=== PATIENT | female | born 1950 | race Caucasian/White ===

== ENCOUNTER 2018-08-11 07:23 | Outpatient (CLI) | payer MEDICARE, BC, SELFPAY ==
[2018-08-11 08:51] LABS: Calculated LDL 92 mg/dL; Cholesterol 165 mg/dL (50-200); HDL Cholesterol 54 mg/dL (40-60); Triglyceride 96 mg/dL (30-150)
== END 2018-08-11 07:43 ==
PROVIDERS: PCP Internal Medicine; Visit Provider Internal Medicine
DX: E78.00 Pure hypercholesterolemia, unspecified (principal)
CPT/HCPCS: 36415; 80061; 83721

== ENCOUNTER 2019-04-23 07:35 | Outpatient (CLI) | payer MEDICARE, BC, SELFPAY ==
[2019-04-23 07:59] LABS: Abs Immature Grans 0.01 k/cumm (0.0-0.09); Absolute Basophil Count 0.02 k/cumm (0.0-0.2); Absolute Eosinophil Count 0.16 k/cumm (0.0-0.7); Absolute Lymphocyte Count 1.98 k/cumm (1.2-3.4); Absolute Neutrophil Count 2.18 k/cumm (1.2-6.7); Basophils % 0.4; Eosinophils % 3.2; HGB 13.2 g/dL (12.0-15.5); Immature Grans % 0.2 %; Mean Corp. HGB Concentration 33.8 g/dL (32.0-36.0); Mean Corpuscular Hemoglobin 32.2 pg (27.0-33.0); Mean Corpuscular Volume 95.1 fL (80-95); Mean Platelet Volume 9.1 fL (8.0-11.0); Monocytes % 12.1; Neutrophils % 44.1; Platelet Count 326 x1000/uL (130-400); RBC Distribution Width 11.7 % (11.7-14.6); White Blood Cell Count 4.95 k/cumm (4.4-10.8)
[2019-04-23 08:50] LABS: ALT 27 U/L (14-59); AST 18 U/L (15-37); Albumin 3.8 g/dL (3.4-5.0); Alkaline Phosphatase 51 U/L (46-116); Anion Gap 5.8 mmol/L (3-11); BUN 13 mg/dL (7-18); Bilirubin, Total 0.5 mg/dL (0.2-1.0); C-Reactive Protein 0.27 mg/dL (0.0-0.3); CO2 31.2 mmol/L (21.0-32.0); CREATININE 0.84 mg/dL (0.55-1.02); Calcium 7.8 mg/dL (8.5-10.1); Chloride 105 mmol/L (98-107); Creatine Kinase 86 U/L (26-192); Glucose 100 mg/dL (74-106); Lipase 87 U/L (73-393); Potassium 4.4 mmol/L (3.5-5.1); Sodium 142 mmol/L (136-145); TSH (W/Ref FT4) 5.34 uIU/mL (0.36-3.74); Total Protein 6.8 g/dL (6.4-8.2)
[2019-04-23 09:16] LABS: FREE T4 0.75 ng/dL (0.76-1.46)
[2019-04-23 09:20] LABS: ESR 16 mm/hr (0-30)
== END 2019-04-23 07:55 ==
PROVIDERS: PCP Internal Medicine; Visit Provider Nurse Practitioner Adult Health
DX: R10.816 Epigastric abdominal tenderness (principal); R10.9 Unspecified abdominal pain; M79.10 Myalgia, unspecified site; R70.0 Elevated erythrocyte sedimentation rate; R79.82 Elevated C-reactive protein (CRP); E78.00 Pure hypercholesterolemia, unspecified
CPT/HCPCS: 36415; 80053; 82550; 83690; 85652; 84439; 84443; 85025; 86140

== ENCOUNTER 2019-04-25 08:41 | Outpatient (CLI) | payer MEDICARE, BC, SELFPAY ==
--- NOTE | 2019-04-25 07:00 | DI.US_ITS ---
EXAM: US ABDOMEN CLINICAL HISTORY: epigastric abd tenderness,abd pain, fatty liver TECHNIQUE: Ultrasound performed using standard protocol. COMPARISON: No exams were available for comparison FINDINGS: The aorta is normal in diameter. The liver shows increased echogenicity, consistent with fatty infil tration. No focal liver lesions or biliary dilatation is seen. The gallbladder has a normal appeara nce, without evidence of stones or wall thickening. The spleen was partially obscured by bowel gas. It is normal in size. There is no evidence of hydronephrosis. The pancreas is grossly normal. IMPRESSION: Mild fatty infiltration of the liver, otherwise negative. DATA REPOSITORY:
== END 2019-04-25 09:01 ==
PROVIDERS: PCP Internal Medicine; Visit Provider Nurse Practitioner Adult Health
DX: K76.0 Fatty (change of) liver, not elsewhere classified (principal); R10.816 Epigastric abdominal tenderness; R10.9 Unspecified abdominal pain
CPT/HCPCS: 76700

== ENCOUNTER 2019-07-20 03:09 | Outpatient (CLI) | payer MEDICARE, BC, SELFPAY ==
[2019-07-20 13:24] LABS: TSH (W/Ref FT4) 2.85 uIU/mL (0.36-3.74)
== END 2019-07-20 03:29 ==
PROVIDERS: PCP Internal Medicine; Visit Provider Internal Medicine
DX: E03.9 Hypothyroidism, unspecified (principal)
CPT/HCPCS: 36415; 84443

== ENCOUNTER 2019-07-25 18:01 | Outpatient (CLI) | payer MEDICARE, BC, SELFPAY ==
--- NOTE | 2019-07-25 13:50 | DI.RAD_ITS ---
EXAM: XR HIP LT COMPLETE AP PELVIS CLINICAL HISTORY: L hip pain. TECHNIQUE: 2D digital imaging was performed. COMPARISON: No exams were available for comparison FINDINGS: Left hip is well maintained. The articular surfaces are within normal limits. The bones are intact and normally mineralized. No acute fracture or dislocation is seen. The soft tissues are unremarkab le. The sacroiliac joints and symphysis pubis are intact. IMPRESSION: Unremarkable radiographs of the left hip. Unremarkable radiographs of the pelvis DATA REPOSITORY: RADIATION DOSE DELIVERED:
== END 2019-07-25 18:21 ==
PROVIDERS: PCP Internal Medicine; Referring Provider Internal Medicine; Visit Provider Student in an Organized Health Care Education/Training Program
DX: M25.552 Pain in left hip (principal); M70.62 Trochanteric bursitis, left hip
CPT/HCPCS: 20610; 99204; 73502; J1030

== ENCOUNTER 2020-01-15 22:07 | Emergency (ER) | payer MEDICARE, BC, SELFPAY ==
[2020-01-15] VITALS (12 sets, daily range): BP systolic 128–172; BP diastolic 67–88; PULSE 81–102; RESP 7–22; TEMP 37; O2SAT 93–99
--- NOTE | 2020-01-15 22:00 | RT.EKG_ITS ---
APPROVED REPORT Exam: Resting ECG Patient Location: E HR:85 bpm ECG Measurements Heart Rate 85 AXIS ND 186 P 43 QRSd 104 QRS 49 QT 375 T 50 QTc 447 Conclusion Sinus rhythm...normal P axis, V-rate 60- 99
--- NOTE | 2020-01-15 22:15 | DI.CT_ITS ---
EXAM: CT CHEST PE CTA CLINICAL HISTORY: palpitations, tachycardia. TECHNIQUE: Imaging Protocol: Axial CT angiography was performed with multi-slice acquisition and mu lti-planar and/or 3D reconstructions. CONTRAST MATERIAL: Intravenous: Omnipaque 350 Contrast volume:75 cc COMPARISON: No exams were available for comparison FINDINGS: Pulmonary Arteries: No evidence of filling defect to suggest pulmonary emboli. Lungs: There is no evidence of pulmonary infarction, infiltrate, or pleural effusions. Mediastinum: No hilar nor mediastinal adenopathy. Cardiac: Heart size upper normal. There is no pericardial effusion. Caliber of the thoracic aorta i s within normal limits. Osseous: No significant findings. IMPRESSION: No evidence of pulmonary embolism. No evidence of pulmonary infarction or pleural effusions.. No other significant intrathoracic findings. RADIATION DOSE DELIVERED: 321.54mGy.cm Total DLP DATA REPOSITORY: All CT scans at this facility are submitted to the National Radiology Data Registry (NRDR) Dose Index Registry (DIR) with the [employer] ([employer]). RADIATION OPTIMIZATION: All CT scans at this facility use at least one of these dose optimization te chniques: automated exposure control; mA and/or kV adjustment per patient size (includes targeted exa ms where dose is matched to clinical indication); or iterative reconstruction.
--- NOTE | 2020-01-15 22:19 | W.ED.GENAD ---
Discharge Plan Disposition Patient Disposition: HOME Condition: Stable Discharge Details Clinical Impression: Heart palpitations Primary Care Provider: Magui Peña ED Provider: Olvin Washburn Home Meds and New Rx's Prescriptions: Continued magnesium oxide 400 mg magnesium tablet 400 mg PO DAILY RF: 0 lactase 3,000 UNIT tablet 3,000 unit PO DAILY RF: 0 Denavir 1.5 GM cream 1.5 gm Topical PRN Qty: 1 RF: 0 cholecalciferol (vitamin D3) 5,000 UNIT capsule 5,000 unit PO DAILY RF: 0 propranolol 10 MG tablet 10 mg PO TID PRNQty: 30 RF: 0 diclofenac sodium [Voltaren] 100 GM gel 100 gm Topical RF: 0 Varicella-Zoster Ge/As01b/Pf [Shingrix Vial Kit] 50 MCG INJ 50 mcg IM ONCE Qty: 1 RF: 1 clobetasol 15 GM ointment 15 gm Topical HS Qty: 1 RF: 0 acetaminophen [Arthritis Pain Relief (acetam)] 650 mg tablet extended release 1,300 mg PO Q8H PRN (Reason: pain) RF: 0 atorvastatin 10 mg tablet 10 mg PO DAILY Qty: 90 RF: 2 paroxetine HCl 20 mg tablet 20 mg PO DAILY Qty: 90 RF: 2 omeprazole 20 mg capsule,delayed release(DR/EC) 20 mg PO DAILY Qty: 30 RF: 0 calcium carbonate-vitamin D3 [Caltrate with Vitamin D3] 1 EACH tablet 1 ea PO DAILY RF: 0 vitamin E 1,000 UNIT capsule 1,000 unit PO DAILY RF: 0 Discharge Instructions Instructions: Heart Palpitations (ED) Additional Instructions: your lab work, ekg and monitoring here did not show any concerning findings follow up with your primary care provider to discuss outpatient heart monitoring if you feel more ill, have worsening pain or symptoms return to the emergency department Medical Decision Making 69 yo female with hx of hypothyroidism, hld, gerd,anxiety, who comes in after she states around 9 pm tonight felt her heart start racing to about 130 beats per minute and lasted 45 seconds. Had 2 more episodes and called ems who evaluated her on scene and noted HR of 102 so she decided to come by private car. She currently has a heart rate of95 in sinus rhythm and does still feel her heart is racing, hd stable otherwise. Denies chest pain or pressure, dyspnea, fevers, cough. Has no murmurs and clear lung sounds, no jvd, no leg swelling. She does note she doesn't hydrate well and this could be the cause of this but will maintain on tele, evaluate for possible electrolyte abnormalities and cardiac ischemia though unlikely given lack of pain. Given the mild tachycardia to 102 will obtain cta to evaluate for possible pe labs unremarkable and imaging shows nonspecific peribronchial cuffing otherwise clear lung. She remains stable with sinus rhythm and rates in the 80's and feels better after ivf so could have been an element of dehydration. Given reassuring tele here and workup feel she is stable for d/c and advised to f/u with pcp lidya for possible outpatient holter and return precautions given Differential Diagnosis Differential Diagnosis: svt, afib, anxiety, dehydration Medical Records Medical records reviewed: Yes I reviewed the patient's medical records. Imaging Data Radiologic Study: Attestation: I personally reviewed and interpreted this imaging study as follows: Imaging: CT Scan Radiologist's impression: FINDINGS: Pulmonary arteries: There is no evidence for PE. Aorta: Unremarkable. No aortic aneurysm. No aortic dissection. Lungs: Minimal dependent atelectasis noted Peribronchial cuffing is present which is nonspecific, and which may reflect acute or chronic bronchial inflammation. Alternatively, this may reflect an element of reactive airways disease. Pleural space: Unremarkable. No pneumothorax. No pleural effusion. Heart: Unremarkable. No cardiomegaly. No pericardial effusion. Lymph nodes: Unremarkable. No enlarged lymph nodes. Bones/joints: Unremarkable. No acute fracture. Soft tissues: Unremarkable. IMPRESSION: Nonspecific peribronchial cuffing Lab Data Lab results reviewed: Yes I reviewed the patient's lab results. ECG Data Attestation: I personally reviewed and interpreted this ECG (s) as follows: Prior ECG tracings: not available for review Interpretation: sinus rhythm, rate of 85, pr 186 qtc 447 HPI General Mode of arrival: ambulatory. Date/Time Provider Initiated Documentation: 01/15/20 22:08. Limitations to Documentation: no limitations. Information obtained by: patient. History of Present Illness 69 year old F presents to the emergency department with the chief complaint of palpitations, described as moderate, Patient started experiencing this hour(s) (1) and it has been intermittent. No relieving factors improve symptom(s), No exacerbating factors reported . Patient notes no other symptoms.. Patient did receive the following treatments prior to arrival, none Related Data Home Medications Medication Instructions Recorded Confirmed calcium carbonate-vitamin D3 1 ea PO DAILY 04/22/12 07/25/19 [Caltrate with Vitamin D3] lactase 3,000 unit PO DAILY 08/29/12 07/25/19 vitamin E 1,000 unit PO DAILY 10/01/13 07/25/19 Denavir 1.5 gm TOPICAL PRN #1 script 08/05/14 07/25/19 cholecalciferol (vitamin D3) 5,000 unit PO DAILY cap 08/11/16 07/25/19 propranolol 10 mg PO TID PRN #30 tab-cap 08/11/16 07/25/19 diclofenac sodium [Voltaren] 100 gm TOPICAL script 06/29/17 07/25/19 clobetasol 15 gm TOPICAL HS #1 tube 07/05/17 07/25/19 acetaminophen 650 mg 1,300 mg PO Q8H PRN tab 09/14/18 07/25/19 tablet,extended release atorvastatin 10 mg tablet 10 mg PO DAILY #90 tab 12/12/18 07/25/19 magnesium oxide 400 mg PO DAILY 04/20/19 07/25/19 paroxetine HCl 20 mg tablet 20 mg PO DAILY #90 tab 07/03/19 07/25/19 omeprazole 20 mg capsule,delayed 20 mg PO DAILY #30 cap 07/27/19 release Previous Rx's Medication Instructions Recorded clobetasol 15 gm TOPICAL HS #1 tube 07/05/17 atorvastatin 10 mg tablet 10 mg PO DAILY #90 tab 12/12/18 paroxetine HCl 20 mg tablet 20 mg PO DAILY #90 tab 07/03/19 omeprazole 20 mg capsule,delayed 20 mg PO DAILY #30 cap 07/27/19 release Allergies Allergy/AdvReac Type Severity Reaction Status Date / Time triamcinolone [From [employer]] Allergy Verified 01/15/20 22:26 General Stated Complaint: Palpitatns ELSA: 3 Review of Systems All systems reviewed & are unremarkable except as noted in HPI and below Constitutional Constitutional: Denies chills, Denies fever(s) and Denies weakness Cardiovascular Cardiovascular: Denies chest pain and Denies dyspnea Respiratory Respiratory: Denies cough and Denies dyspnea Gastrointestinal Gastrointestinal: Denies abdominal pain, Denies nausea and Denies vomiting Genitourinary Genitourinary: Denies dysuria Musculoskeletal Musculoskeletal: Denies joint swelling Integumentary/Breasts Skin/Breast: Denies rash Neurologic Neurologic: Denies weakness Psychiatric Psychiatric: Denies depression REPLACED BY [facility] Medical History (Updated 01/15/20 @ 23:22 by Olvin Washburn MD) GERD (gastroesophageal reflux disease) HLD (hyperlipidemia) Hypothyroid Labs; clinically asymptomatic; repeat labs 3 months, as pt not feeling great at time of lab draw Surgical History esophagogoastroduodenoscopy (10/01/13) S/P trigger finger release (07/18/18) right hand, 2,3 and 4th fingers Family History Father Alcohol abuse Sister Alcohol abuse Social History Smoking/Tobacco Use Status: Never Smoking risk assessment performed?: Yes Alcohol Intake: current Alcohol Intake frequency: 0-2 drinks per day Alcohol type: beer Drug use: Never Substance use type: does not use Adopted: No Household members: spouse Housing: house Number of Children: 3 number of grandchildren: 2 Education Level: master's degree Do you need help understanding health information?: Never 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 Sexually active: No Current gender identity: female What is your relationship status?: Panel score (0-1 are the most socially isolated patients): 1 What type of physical activity do you participate in: walking and bicycling Frequency: 3-4 times per week Seatbelt use: always Working smoke detector in home: Yes Fire extinguisher in home: Yes Carbon monox detector in home: Yes Do you feel safe at home: Yes Do you feel safe in your relationship?: Yes Exam Const General: no acute distress Orientation: alert HENMT Head: normal to inspection Ears: external ears normal General nose exam: external nose normal Mouth: moist mucous membranes Eyes General: appearance normal, both eyes and all related structures Neck Neck: normal visual inspection Resp Effort & Inspection: normal respiratory effort and able to speak in complete sentences Cardio Rate: regular rate Skin General skin exam: no rashes or lesions noted Neuro General: patient alert and patient oriented x3 Extrem General: normal to inspection Psych Mental Status: mental status grossly normal Course Vital Signs Vital signs: Vital Signs Temperature 37.0 C 01/15/20 22:11 Pulse 96 H 01/15/20 22:11 Respiratory Rate 19 01/15/20 22:11 Blood Pressure 172/88 H 01/15/20 22:11 Pulse Oximetry 96 01/15/20 22:11 Temperature 37.0 C 01/15/20 22:11 Temperature Source Skin 01/15/20 22:11 Pulse 94 H 01/15/20 22:14 Pulse 92 H 01/15/20 22:15 Respiratory Rate 20 01/15/20 22:15 Blood Pressure 172/88 H 01/15/20 22:14 Blood Pressure Mean 101 01/15/20 22:14 Blood Pressure Position Supine 01/15/20 22:11 Pulse Oximetry 99 01/15/20 22:15 Oxygen Delivery Method Room Air 01/15/20 22:11 Oxygen Flow Rate 0 01/15/20 22:11 Pain Level 0 01/15/20 22:11
[2020-01-15] MEDS: Normal Saline 1,000 ML 1000 ML IV (22:23)
[2020-01-15 22:30] LABS: Abs Immature Grans 0.02 10^3/uL (0.0-0.06); Absolute Basophil Count 0.03 10^3/uL (0.0-0.2); Absolute Eosinophil Count 0.13 10^3/uL (0.0-0.7); Absolute Lymphocyte Count 2.35 10^3/uL (1.2-3.4); Absolute Monocyte Count 0.89 10^3/uL (0.1-0.8); Absolute Neutrophil Count 4.18 10^3/uL (1.2-6.7); Basophils % 0.4; Eosinophils % 1.7; HCT 38.1 % (36.0-46.0); Immature Grans % 0.3; Lymphocytes % 30.9; MCH 32.2 pg (27.0-33.0); MCHC 34.1 % (32.0-36.0); MCV 94.3 fL (80-95); MPV 9.3 fL (8.0-11.0); Monocytes % 11.7; Nucleated RBC 0 %; Platelet Count 305 10^3/uL (130-400); RBC 4.04 10^6/uL (3.93-5.22); RDW 11.4 % (11.7-14.6); RDW-SD 39.6 fL
[2020-01-15] MEDS: Omnipaque 350 MG/ML 100 ML BTL IJ (22:34)
[2020-01-15] MEDS: Normal Saline - Diluent 50 ML VIAL IV (22:44)
[2020-01-15] MEDS: Normal Saline Flush 10 ML SYR IVP (22:44)
[2020-01-15 22:49] LABS: ALT 37 U/L (14-59); AST 20 U/L (15-37); Albumin 3.8 g/dL (3.4-5.0); Alkaline Phosphatase 60 U/L (46-116); Anion Gap 5.3 mmol/L (3-11); BUN 18 mg/dL (7-18); Bilirubin, Total 0.2 mg/dL (0.2-1.0); CO2 27.7 mmol/L (21.0-32.0); CREATININE 0.82 mg/dL (0.55-1.02); Calcium 8.5 mg/dL (8.5-10.1); Chloride 105 mmol/L (98-107); Glucose 127 mg/dL (74-106); Magnesium 1.9 mg/dL (1.8-2.4); Potassium 3.5 mmol/L (3.5-5.1); Sodium 138 mmol/L (136-145); TSH (W/Ref FT4) 6.89 uIU/mL (0.36-3.74); Total Protein 7.3 g/dL (6.4-8.2)
[2020-01-15 22:51] LABS: Troponin I < 0.05 ng/mL (<0.06)
--- NOTE | 2020-01-15 23:01 | DI.VRAD_ITS ---
PROCEDURE INFORMATION: Exam: CT Angiography Chest With Contrast Exam date and time: 01/15/2020 10:39 PM Age: 69 years old Clinical indication: Other: Palpitations, tachycardia TECHNIQUE: Imaging protocol: Computed tomographic angiography of the chest with intravenous contrast. 3D rendering (Not supervised by radiologist): MIP and/or 3D reconstructed images were created by the technologist. Radiation optimization: All CT scans at this facility use at least one of these dose optimization techniques: automated exposure control; mA and/or kV adjustment per patient size (includes targeted exams where dose is matched to clinical indication); or iterative reconstruction. Contrast material: OMNIPAQUE 350; Contrast volume: 75 ml; Contrast route: INTRAVENOUS (IV); COMPARISON: No relevant prior studies available. FINDINGS: Pulmonary arteries: There is no evidence for PE. Aorta: Unremarkable. No aortic aneurysm. No aortic dissection. Lungs: Minimal dependent atelectasis noted Peribronchial cuffing is present which is nonspecific, and which may reflect acute or chronic bronchial inflammation. Alternatively, this may reflect an element of reactive airways disease. Pleural space: Unremarkable. No pneumothorax. No pleural effusion. Heart: Unremarkable. No cardiomegaly. No pericardial effusion. Lymph nodes: Unremarkable. No enlarged lymph nodes. Bones/joints: Unremarkable. No acute fracture. Soft tissues: Unremarkable. IMPRESSION: Nonspecific peribronchial cuffing. Dictated and Authenticated by: Cesar Cintron MD. Ordering:JANNIE Bah MD
[2020-01-15 23:08] LABS: FREE T4 0.89 ng/dL (0.76-1.46)
[2020-01-15 23:38] LABS: PTT Activated 23.9 sec (21.0-27.5); Prothrombin Time 10.3 sec (9.3-11.0)
--- NOTE | 2020-01-15 23:53 | NUR.NOTE ---
mars for follow up with pcp was sent to [facility] Nursing Note:
== END 2020-01-15 23:37 | disposition home or self-care (01) ==
PROVIDERS: Emergency Provider Emergency Medicine; PCP Internal Medicine
DX: R00.2 Palpitations (principal)
CPT/HCPCS: 36415; 71275; 80053; 93005; 96360; 99285; 83735; 84439; 84443; 84484; 85025; 85610; 85730; 93010; 99284; J3490

== ENCOUNTER 2020-01-25 05:00 | Outpatient (CLI) | payer MEDICARE, BC, SELFPAY ==
[2020-01-25 14:07] LABS: Hemoglobin A1C 5.5 % (<5.7)
[2020-01-25 14:11] LABS: FREE T4 0.73 ng/dL (0.76-1.46); TSH 4.44 uIU/mL (0.36-3.74)
[2020-01-25 21:39] LABS: T3,Free 3.1 pg/mL (2.8-5.3)
[2020-01-25 22:02] LABS: Thyroglobulin Antibody 317 U/mL (<=60); Thyroperoxidase Antibody <28 U/mL (<=60)
== END 2020-01-25 05:20 ==
PROVIDERS: PCP Internal Medicine; Visit Provider Nurse Practitioner Adult Health
DX: E03.9 Hypothyroidism, unspecified (principal); R73.09 Other abnormal glucose; R00.2 Palpitations; R79.89 Other specified abnormal findings of blood chemistry; K76.0 Fatty (change of) liver, not elsewhere classified
CPT/HCPCS: 36415; 86376; 93246; 83036; 84439; 84443; 84481

== ENCOUNTER 2020-01-25 05:05 | Outpatient (CLI) | payer MEDICARE, BC, SELFPAY ==
--- NOTE | 2020-02-11 09:11 | ZIOP_ITS ---
Date of service: 02/11/20 Time of Service: 09:11 14 Day [employer] Referring Provider:: Selene Samuel Indications:: Palpitations Note: This is a 14-day monitor reportedly ordered for symptoms of palpitations Predominant rhythm was sinus. Average heart rate was 74. Minimum was 55 and maximum 121 There were no ventricular dysrhythmias There were rare atrial premature beats Patient symptoms corresponded to sinus rhythm ranging from 75 to 85 bpm There were no pauses greater than 3 seconds, no high-grade AV block
== END 2020-01-25 05:25 ==
PROVIDERS: PCP Internal Medicine; Visit Provider Nurse Practitioner Adult Health
DX: R00.2 Palpitations (principal)
CPT/HCPCS: 0296T; 93246

== ENCOUNTER → 2020-02-11 09:11 | Outpatient (CLI) | payer MEDICARE, BC, SELFPAY | PROVIDERS: PCP Internal Medicine; Referring Provider Nurse Practitioner Adult Health; Visit Provider Internal Medicine Cardiovascular Disease | DX: R00.2 Palpitations (principal) | CPT/HCPCS: 0298T ==

== ENCOUNTER → 2020-03-06 11:17 | Outpatient (BNVA) | payer MEDICARE, BC, SELFPAY | PROVIDERS: PCP Internal Medicine; Referring Provider Nurse Practitioner Adult Health; Visit Provider Internal Medicine Cardiovascular Disease | DX: R00.2 Palpitations (principal) | CPT/HCPCS: 99214 ==

== ENCOUNTER → 2020-05-09 07:53 | Outpatient (BNVA) | payer MEDICARE, BC, SELFPAY | PROVIDERS: PCP Internal Medicine; Referring Provider Internal Medicine; Visit Provider Physician Assistant | DX: M70.62 Trochanteric bursitis, left hip (principal) | CPT/HCPCS: 20610; J1040 ==

== ENCOUNTER 2020-07-31 01:47 | Outpatient (CLI) | payer MEDICARE, BC, SELFPAY ==
[2020-07-31 13:05] LABS: TSH 4.25 uIU/mL (0.36-3.74)
== END 2020-07-31 01:48 | disposition home or self-care (01) ==
PROVIDERS: PCP Internal Medicine; Visit Provider Student in an Organized Health Care Education/Training Program
DX: E03.8 Other specified hypothyroidism (principal); E06.3 Autoimmune thyroiditis
CPT/HCPCS: 36415; 84443

== ENCOUNTER → 2020-08-06 07:57 | Outpatient (BNVA) | payer MEDICARE, BC, SELFPAY | PROVIDERS: PCP Internal Medicine; Referring Provider Internal Medicine; Visit Provider Student in an Organized Health Care Education/Training Program | DX: M70.62 Trochanteric bursitis, left hip (principal); M76.32 Iliotibial band syndrome, left leg; M70.61 Trochanteric bursitis, right hip; Z98.890 Other specified postprocedural states | CPT/HCPCS: 99214 ==

== ENCOUNTER 2021-07-20 04:02 | Outpatient (CLI) | payer MEDICARE, SELFPAY ==
[2021-07-20 14:15] LABS: Anion Gap 6.9 mmol/L (3-11); BUN 20 mg/dL (7-18); CO2 29.1 mmol/L (21.0-32.0); CREATININE 0.7 mg/dL (0.55-1.02); Calcium 8.6 mg/dL (8.5-10.1); Calculated LDL 86 mg/dL (<100); Chloride 103 mmol/L (98-107); Cholesterol 178 mg/dL (<200); Glucose 101 mg/dL (74-106); HDL Cholesterol 72 mg/dL (40-60); Potassium 4.5 mmol/L (3.5-5.1); Sodium 139 mmol/L (136-145); TSH 1.98 uIU/mL (0.36-3.74); Triglyceride 101 mg/dL (<150)
== END 2021-07-20 04:03 | disposition home or self-care (01) ==
LOC: LBO 04:02
PROVIDERS: PCP Internal Medicine; Visit Provider Internal Medicine
DX: E06.3 Autoimmune thyroiditis (principal); E78.5 Hyperlipidemia, unspecified; R03.0 Elevated blood-pressure reading, without diagnosis of hypertension; E78.00 Pure hypercholesterolemia, unspecified
CPT/HCPCS: 36415; 80048; 80061; 84443

== ENCOUNTER 2021-12-28 16:30 | Outpatient (CLI) | payer MEDICARE, SELFPAY ==
[2021-12-28 17:51] LABS: TSH (W/Ref FT4) 2.95 uIU/mL (0.36-3.74)
== END 2021-12-28 16:31 | disposition home or self-care (01) ==
LOC: LBO 16:43
PROVIDERS: PCP Nurse Practitioner Adult Health; Visit Provider Nurse Practitioner Adult Health
DX: R00.2 Palpitations (principal)
CPT/HCPCS: 36415; 84443

== ENCOUNTER 2022-06-29 19:33 | Emergency (ER) | payer MEDICARE, SELFPAY ==
[2022-06-29] VITALS (51 sets, daily range): BP systolic 135–161; BP diastolic 53–87; PULSE 70–77; RESP 11–26; TEMP 36.6; O2SAT 91–97
--- NOTE | 2022-06-29 19:30 | RT.EKG_ITS ---
APPROVED REPORT Exam: Resting ECG Reason for Exam: slow heart rate Patient Location: E HR:74 bpm ECG Measurements Heart Rate 74 AXIS UT 161 P 47 QRSd 94 QRS 43 QT 388 T 61 QTc 422 Conclusion Sinus rhythm...normal P axis, V-rate 60- 99 Multiple ventricular premature complexes...V complexes w/ short R-R intervls Probable left atrial enlargement...P >50mS, <-0.10mV V1 Low voltage, precordial leads...precordial leads <1.0mV. Sinus. Normal axis. PVCs. No STEMI. I have reviewed and interpreted ECG and agree with software generated interpretation.
--- NOTE | 2022-06-29 20:15 | DI.RAD_ITS ---
Exam(s) XR PORTABLE CHEST AP EXAM: XR PORTABLE CHEST AP CLINICAL HISTORY: tired, r/o acute disease TECHNIQUE: 2D digital imaging was performed. COMPARISON: CR CHEST 2 VIEWS PA,LAT from 08/21/2010 FINDINGS: LUNGS: Clear. No pleural abnormality seen. HEART: Normal size. AORTA: Normal diameter. BONES: Unremarkable for age. Soft tissues: Unremarkable. IMPRESSION: No acute findings. DATA REPOSITORY: RADIATION DOSE DELIVERED:
--- NOTE | 2022-06-29 20:18 | W.ED.GENAD ---
Discharge Plan Disposition Patient Disposition: Home Condition: Stable Discharge Details Clinical Impression: Palpitations Primary Care Provider: Selene Pollack ED Provider: Mary Hobbs Home Meds and New Rx's Prescriptions: Continued magnesium oxide 400 mg magnesium tablet 400 mg PO DAILY ibuprofen [Advil] 200 mg tablet 400 mg PO Q6H PRN estradiol [Estrace] 0.01 % (0.1 mg/gram) cream 1 appful vaginal .COMPLEX Qty: 42.5 2RF Rx Instructions: 1 appful vaginally 1-2 times weekly penciclovir [Denavir] 1 % cream 1 applic Topical PRN Qty: 1 0RF Rx Instructions: Apply to affected area BID as needed for apthous ulcer clobetasol 0.05 % ointment 1 applic topical .COMPLEX 42 Days Qty: 15 2RF Rx Instructions: 1 applic TP at bedtime daily for 6 wees then weekly for 6 weeks lactase 3,000 UNIT tablet 3,000 unit PO DAILY cholecalciferol (vitamin D3) 5,000 UNIT capsule 5,000 unit PO DAILY diclofenac sodium [Voltaren] 100 GM gel 100 gm Topical Rx Instructions: 06/28/17-rx from [facility] [place] rheum. Varicella-Zoster Ge/As01b/Pf [Shingrix Vial Kit] 50 MCG INJ 50 mcg IM ONCE Qty: 1 1RF acetaminophen [Arthritis Pain Relief (acetam)] 650 mg tablet extended release 1,300 mg PO Q8H PRN (Reason: pain) Rx Instructions: up to 5 tabs per day note dated 09/06/18 Clau Price DPM atorvastatin 10 mg tablet 10 mg PO DAILY Qty: 90 3RF propranolol 10 mg tablet See Rx Instructions .ROUTE .COMPLEX Qty: 270 0RF Dose Instruction: TAKE 1 TABLET(10 MG) BY MOUTH THREE TIMES DAILY NEEDED FOR PALPITATIONS Rx Instructions: TAKE 1 TABLET(10 MG) BY MOUTH THREE TIMES DAILY NEEDED FOR PALPITATIONS levothyroxine 25 mcg tablet See Rx Instructions .ROUTE .COMPLEX Qty: 90 3RF Dose Instruction: TAKE 1 TABLET BY MOUTH EVERY MORNING ON AN EMPTY STOMACH, ABOUT 30 MINUTES APART FROM OTHER FOODS, MEDICATIONS Rx Instructions: TAKE 1 TABLET BY MOUTH EVERY MORNING ON AN EMPTY STOMACH, ABOUT 30 MINUTES APART FROM OTHER FOODS, MEDICATIONS paroxetine HCl 20 mg tablet 20 mg PO DAILY Qty: 90 3RF calcium carbonate-vitamin D3 [Caltrate with Vitamin D3] 1 EACH tablet 1 ea PO DAILY Rx Instructions: Ca 1000 mg, Vit D3 600mg vitamin E 1,000 UNIT capsule 1,000 unit PO DAILY Discharge Instructions Instructions: Heart Palpitations (ED) Additional Instructions: Your blood tests, EKGs and imaging today are reassuring and show no evidence of acute concerning findings. Your symptoms, EKGs and case were discussed with [facility] cardiology. They note that your EKG and symptoms are consistent with ventricular bigeminy which involves extra beats called premature ventricular contractions (PVCs). This is likely the cause of your symptoms of palpitations, fluttering and skipped beats. They are recommending that you have a Zio patch placed and obtain an echocardiogram as soon as possible. They are also recommending that you could restart your propranolol today or get started on another beta-earl daily. 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 You have been placed on care management's list to arrange for a follow-up appointment with your primary care doctor's office tomorrow to discuss your symptoms and plan for Zio patch, echocardiogram and starting a daily beta-earl. It would also be recommended to follow-up with cardiology outpatient. Drink plenty of fluids and get plenty of rest. Return immediately to the emergency department if you develop any worsening or new concerning symptoms. 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 Heart rate on arrival 77. Blood pressure reassuring at 135/79. EKG noted a rate of 74, sinus, PVCs with normal intervals and no acute ischemic findings. During my evaluation of patient in triage, her heart rate was 36 and patient appeared in no acute distress. While telling her that her heart rate was low again, she seemed anxious and her heart rate increased to 70s. Review of records notes that patient has had a Holter monitor placed in 2015 and 2019 both of which noted mostly sinus and mostly normal heart rate with no evidence of atrial or ventricular dysrhythmias. Patient brought back to her room. Will obtain screening labs, telemetry monitoring, chest x-ray. 2129 --Labs and imaging reviewed. Normal white blood cell count. Normal electrolytes. Troponin within normal limits. FLUVID negative. Chest x-ray negative for acute disease. Case discussed with [facility] cardiology who notes that patient's heart rate in the 70s is accurate and appears consistent with ventricular bigeminy. He notes that patient's smart watch and pulse oximeter's do not count PVCs. He is recommending an outpatient Zio patch to assess for PVC burden and outpatient echocardiogram. If PVC burden is greater than 10 to 15%, would recommend PVC ablation; If less than 10 to 15% you can treat her symptoms. Risks of high PVC burden include cardiomyopathy. He recommends that patient can restart her propranolol and suspect that her ongoing symptoms of palpitations are likely due to not taking the propranolol consistently in the setting of ongoing symptoms of palpitations and fluttering. She could also consider starting another type of daily beta-earl. Patient had endorsed that she has a Holter monitor or Zio patch scheduled for July 13. Patient was placed on care management's list to arrange for a follow-up appointment with her primary care doctor's office tomorrow to discuss the beta-earl, and placement of a Zio patch and obtaining an echocardiogram.. Discussed that she can restart her propranolol this evening or discuss this with her provider tomorrow. We will place an order for the outpatient echocardiogram but discussed that she may need to schedule this or have this ordered through her PCP for primary authorization. Usual and customary return precautions given prior to discharge. Medical Records Medical records reviewed: Yes I reviewed the patient's medical records. Imaging Data Radiologic Study: Radiologist's impression: XR Chest Exam date and time: 06/29/2022 8:41 PM Age: 72 years old Clinical indication: Other: Feels unwell TECHNIQUE: Imaging protocol: Radiologic exam of the chest. Views: 1 view. COMPARISON: CT CHEST PE CTA 01/15/2020 10:30 PM FINDINGS: Lungs: Unremarkable. No consolidation. Pleural spaces: Unremarkable. No pleural effusion. No pneumothorax. Heart/Mediastinum: Unremarkable. No cardiomegaly. Bones/joints: Unremarkable. IMPRESSION: No acute findings. Lab Data Lab results reviewed: Yes I reviewed the patient's lab results. Labs: Laboratory Tests Range/Units 06/29/22 06/29/22 06/29/22 20:27 20:27 20:27 WBC (4.4-10.8) 10^3/uL 6.86 RBC (3.93-5.22) 10^6/uL 4.02 Hgb (11.2-15.7) g/dL 13.2 Hct (36.0-46.0) % 38.6 MCV (80-95) fL 96 H MCH (27.0-33.0) pg 32.8 MCHC (32.0-36.0) % 34.2 RDW (11.7-14.6) % 12.0 Plt Count (130-400) 10^3/uL 276 MPV (8.0-11.0) fL 9.7 Immature Gran % 0.3 Neutrophils % 53.1 Lymphocytes % 33.5 Monocytes % 10.5 Eosinophils % 2.0 Basophils % 0.6 Nucleated RBC % (0.0-0.3) % 0.0 Absolute Neutrophils (1.2-6.7) 10^3/uL 3.64 Absolute Lymphocytes (1.2-3.4) 10^3/uL 2.30 Absolute Monocytes (0.1-0.8) 10^3/uL 0.72 Absolute Eosinophils (0.0-0.7) 10^3/uL 0.14 Absolute Basophils (0.0-0.2) 10^3/uL 0.04 Sodium (136-145) mmol/L 138 Potassium (3.5-5.1) mmol/L 3.8 Chloride (98-107) mmol/L 104 Carbon Dioxide (21.0-32.0) mmol/L 29.7 Anion Gap (3-11) mmol/L 4.3 BUN (7-18) mg/dL 14 Creatinine (0.55-1.02) mg/dL 0.7 Est GFR (CKD-EPI 2020) (mL/min/1.73m2) 90.70 Glucose (74-106) mg/dL 121 H Calcium (8.5-10.1) mg/dL 9.2 Magnesium (1.8-2.4) mg/dL 2.0 Total Bilirubin (0.2-1.0) mg/dL 0.6 AST (15-37) U/L 17 ALT (14-59) U/L 29 Alkaline Phosphatase (46-116) U/L 56 Troponin I (<or=60) ng/L < 50 Total Protein (6.4-8.2) g/dL 7.2 Albumin (3.4-5.0) g/dL 3.7 COVID-19 Source Nasopharynx SARS-CoV-2 (PCR) (Negative) Negative Influenza Type A (PCR) (Negative) Negative Influenza Type B (PCR) (Negative) Negative RSV (PCR) (Negative) Negative ECG Data Attestation: I personally reviewed and interpreted this ECG (s) as follows: Interpretation: #1 -- Rate of 74, sinus, PVCs, normal intervals, no STEMI. #2 -- Rate of 72, sinus, ventricular bigeminy, normal intervals, no STEMI. HPI General Date/Time Provider Initiated Documentation: 06/29/22 19:43. Limitations to Documentation: no limitations. Information obtained by: patient. HPI Narrative: Patient is a 72-year-old female with a history of hypertension, hyperlipidemia, GERD, chronic anxiety, depression, palpitations, history of Eduard's thyroiditis on levothyroxine presents for low heart rate and fatigue today. 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 Patient states this evening her watch alarmed stating that her heart rate was 38. Patient states she has noted throughout the day that she has seemed fatigued. She states she would not have thought anything of it if her heart rate was not low. Patient states she just traveled from [place] where she was cleaning out a condo and has been working hard and not getting much sleep. Patient states she flew back from [place] on Tuesday. Patient states on the flight down to [place] she had swelling in both of her legs initially but states that resolved and denies any new or recent leg pain or swelling. She states she started taking propranolol for feelings of anxiety, palpitations or skipped beats 1 year ago prescribed by her PCP Dr. Peña. She states she takes this randomly but can be every few weeks or months but also as often as 3 times a day. She states she has not taken the propranolol for 3 weeks. Patient denies any caffeinated beverages or energy drinks. She denies any alcohol or drug use. She denies any known fever, blurry vision, headache, sore throat, chest pain, difficulty breathing, abdominal pain, nausea, vomiting, diarrhea, urinary symptoms, unilateral extremity numbness or weakness. Patient endorses that she has another Holter monitor scheduled for July 13 through her PCP office as she has had ongoing feelings of palpitations, heart racing, fluttering and skipped beats over the past several years. She states she has been stressed as her was diagnosed with pancreatic cancer recently and she has been caring for him for the past year going to frequent doctors appointments and traveling. Related Data Home Medications Medication Instructions Recorded Confirmed calcium carbonate 600 mg-vitamin 1 ea PO DAILY 04/22/12 12/23/21 D3 20 mcg (800 unit) tablet (Caltrate with Vitamin D3) lactase 3,000 unit tablet 3,000 unit PO DAILY 08/29/12 12/23/21 vitamin E 670 mg (1,000 unit) 1,000 unit PO DAILY 10/01/13 12/23/21 capsule cholecalciferol (vitamin D3) 125 5,000 unit PO DAILY 08/11/16 12/23/21 mcg (5,000 unit) capsule diclofenac sodium 1 % topical gel 100 gm topical 06/29/17 12/23/21 (Voltaren) acetaminophen 650 mg 1,300 mg PO Q8H PRN pain 09/14/18 12/23/21 tablet,extended release (Arthritis Pain Relief (acetaminophen) ER) magnesium oxide 400 mg PO DAILY 04/20/19 12/23/21 ibuprofen 200 mg tablet (Advil) 400 mg PO Q6H PRN 08/06/20 12/23/21 penciclovir 1 % topical cream 1 applic topical PRN #1 tube 09/23/20 12/23/21 (Denavir) atorvastatin 10 mg tablet 10 mg PO DAILY high cholesterol 04/28/21 12/23/21 #90 tabs propranolol 10 mg tablet See Rx Instructions .Route 12/21/21 12/23/21 .COMPLEX #270 tabs estradiol 0.01% (0.1 mg/gram) 1 appful vaginal .COMPLEX #42.5 12/23/21 12/23/21 vaginal cream (Estrace) grams levothyroxine 25 mcg tablet See Rx Instructions .Route 03/22/22 .COMPLEX #90 tabs paroxetine HCl 20 mg tablet 20 mg PO DAILY #90 tabs 03/22/22 clobetasol 0.05 % topical ointment 1 applic topical .COMPLEX 6 weeks 06/29/22 06/29/22 #15 grams Previous Rx's Medication Instructions Recorded penciclovir 1 % topical cream 1 applic topical PRN #1 tube 09/23/20 (Denavir) atorvastatin 10 mg tablet 10 mg PO DAILY high cholesterol 04/28/21 #90 tabs propranolol 10 mg tablet See Rx Instructions .Route 12/21/21 .COMPLEX #270 tabs estradiol 0.01% (0.1 mg/gram) 1 appful vaginal .COMPLEX #42.5 12/23/21 vaginal cream (Estrace) grams levothyroxine 25 mcg tablet See Rx Instructions .Route 03/22/22 .COMPLEX #90 tabs paroxetine HCl 20 mg tablet 20 mg PO DAILY #90 tabs 03/22/22 clobetasol 0.05 % topical ointment 1 applic topical .COMPLEX 6 weeks 06/29/22 #15 grams Allergies Allergy/AdvReac Type Severity Reaction Status Date / Time triamcinolone [From Kenalog] Allergy Unknown Verified 06/29/22 19:44 General Stated Complaint: Anxiety ELSA: 4 Review of Systems All systems reviewed & are unremarkable except as noted in HPI and below Constitutional Constitutional: Reports as per HPI, Denies chills, Reports fatigue and Denies fever(s) Eyes Eyes: Denies blurry vision ENT Ears, Nose, Mouth, and Throat: Denies dizziness, Denies sore throat and Denies throat swelling Cardiovascular Cardiovascular: Denies chest pain and Denies dyspnea Respiratory Respiratory: Denies cough and Denies dyspnea Gastrointestinal Gastrointestinal: Denies abdominal pain, Denies diarrhea and Denies vomiting Genitourinary Genitourinary: Denies hematuria and Denies dysuria Musculoskeletal Musculoskeletal: Denies back pain and Denies numbness Integumentary/Breasts Skin/Breast: Denies lesions and Denies rash Neurologic Neurologic: Denies dizziness, Denies localized weakness and Denies numbness Endocrine Endocrine: Reports fatigue Allergic/Immunologic Allergic/Immunologic: Denies throat swelling PFSH All Active Problems (Updated 06/30/22 @ 19:02 by Selene Pollack NP) Bigeminal rhythm (Acute ~06/2022) Palpitations (Acute) Lichen sclerosus et atrophicus of the vulva (Acute ~10/2021) Initiated clobetasol October 2021 Elevated blood pressure reading without diagnosis of hypertension (Acute ~09/2020) Palpitations (Chronic) Eduard's thyroiditis (Chronic) [facility] Endocrinology-Dr Barajas; Goal TSH 2-4 on low-dose levothyroxine Anxiety state, unspecified (Acute 02/24/11) Fatty liver (Acute 05/07/13) 04/2013 abd u/s Heartburn (Acute 05/02/13) Hyperlipidemia (Acute 05/30/13) TLCs and repeat lipids 6 months + Flax seed 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 (11/11/21) Trochanteric bursitis of right hip Trochanteric bursitis, left hip Surgical History esophagogoastroduodenoscopy (10/01/13) S/P trigger finger release (07/18/18) right hand, 2,3 and 4th fingers Family History Father Alcohol abuse Sister Alcohol abuse Social History Smoking/Tobacco Use Status: Never Smoking risk assessment performed?: Yes Alcohol Intake: current Alcohol Intake frequency: 0-2 drinks per day Alcohol type: beer and wine Drug use: Never Substance use type: does not use Adopted: No Household members: spouse Housing: house Number of Children: 3 number of grandchildren: 2 Communication Needs: Corrective Lenses Education Level: master's degree Do you need help understanding health information?: Never 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 Sexually active: No Current gender identity: female What is your relationship status?: How often do you talk on the phone with friends or family?: three or more times per week How often do you get together with friends or relatives?: three or more times per week Panel score (0-1 are the most socially isolated patients): 2 What type of physical activity do you participate in: walking, bicycling, regular exercise and additional Details: Stretching Duration: 15-30 minutes/day Frequency: 3-4 times per week Seatbelt use: always Drive intox or ride w/intox front loader residential driver: No Working smoke detector in home: Yes Fire extinguisher in home: Yes Carbon monox detector in home: Yes Do you feel safe at home: Yes Do you feel safe in your relationship?: Yes Female Reproductive History Menstrual Menopause type: natural Exam Const General: cooperative, healthy appearing and no acute distress Orientation: alert, awake and oriented x3 HENMT Head: normal to inspection Face and sinus: normal facial exam Eyes General: appearance normal, both eyes and all related structures Pupils: PERRL EOM: EOM intact bilaterally Neck Neck: normal visual inspection and No submandibular swelling Lymphatic: no lymphadenopathy noted Chest Chest: normal inspection of the chest and no tenderness Resp Effort & Inspection: normal respiratory effort and able to speak in complete sentences Auscultation: clear to auscultation bilaterally Cardio Rate: regular rate Rhythm: regular rhythm GI Inspection: normal to inspection Palpation: soft, not firm, not rigid and nontender Auscultation: normal bowel sounds Skin General skin exam: no rashes or lesions noted Neuro General: patient alert, patient awake and patient oriented x3 Cognition: normal cognition Speech: speech normal Motor: muscle tone normal throughout Sensory Exam: no sensory deficits noted Extrem General: normal to inspection, full ROM, capillary refill normal, no calf tenderness bilaterally and no edema Psych Appearance: grossly normal Mental Status: mental status grossly normal Speech and Movement: speech and movement normal Affect: normal affect Course Vital Signs Vital signs: Vital Signs Temperature 97.8 F 06/29/22 19:36 Pulse 77 06/29/22 19:36 Respiratory Rate 06/29/22 19:36 Blood Pressure 135/79 06/29/22 19:36 Temperature 97.8 F 06/29/22 19:36 Temperature Source Oral 06/29/22 19:36 Pulse 77 06/29/22 19:36 Respiratory Rate 16 06/29/22 19:36 Respiratory Effort Normal 06/29/22 19:41 Respiratory Depth Normal 06/29/22 19:41 Respiratory Pattern Normal 06/29/22 19:41 Blood Pressure 135/79 06/29/22 19:36 Oxygen Delivery Method Room Air 06/29/22 19:36 Oxygen Flow Rate 0 06/29/22 19:36
--- NOTE | 2022-06-29 20:30 | RT.EKG_ITS ---
APPROVED REPORT Exam: Resting ECG Reason for Exam: irregular heart beat Patient Location: E HR:72 bpm ECG Measurements Heart Rate 72 AXIS IA 163 P 43 QRSd 91 QRS 40 QT 398 T 54 QTc 436 Conclusion Sinus rhythm...normal P axis, V-rate 60- 99 Ventricular bigeminy...bigeminy string>4 w/ V complexes Probable left atrial enlargement...P >50mS, <-0.10mV V1. Sinus. Normal axis. Ventricular bigeminy. No STEMI. I have reviewed and interpreted ECG and agree with software generated interpretation.
[2022-06-29 20:37] LABS: Abs Immature Grans 0.02 10^3/uL (0.0-0.06); Absolute Basophil Count 0.04 10^3/uL (0.0-0.2); Absolute Eosinophil Count 0.14 10^3/uL (0.0-0.7); Absolute Monocyte Count 0.72 10^3/uL (0.1-0.8); Absolute Neutrophil Count 3.64 10^3/uL (1.2-6.7); Basophils % 0.6; HCT 38.6 % (36.0-46.0); HGB 13.2 g/dL (11.2-15.7); Immature Grans % 0.3; Lymphocytes % 33.5; MCH 32.8 pg (27.0-33.0); MCHC 34.2 % (32.0-36.0); MCV 96 fL (80-95); MPV 9.7 fL (8.0-11.0); Monocytes % 10.5; Neutrophils % 53.1; Platelet Count 276 10^3/uL (130-400); RBC 4.02 10^6/uL (3.93-5.22); RDW-SD 41.9 fL; WBC 6.86 10^3/uL (4.4-10.8)
[2022-06-29] MEDS: Normal Saline 500 ML IV (20:55)
[2022-06-29 20:56] LABS: ALT 29 U/L (14-59); AST 17 U/L (15-37); Albumin 3.7 g/dL (3.4-5.0); Alkaline Phosphatase 56 U/L (46-116); Anion Gap 4.3 mmol/L (3-11); BUN 14 mg/dL (7-18); Bilirubin, Total 0.6 mg/dL (0.2-1.0); CO2 29.7 mmol/L (21.0-32.0); CREATININE 0.7 mg/dL (0.55-1.02); Calcium 9.2 mg/dL (8.5-10.1); Chloride 104 mmol/L (98-107); Glucose 121 mg/dL (74-106); Potassium 3.8 mmol/L (3.5-5.1); Sodium 138 mmol/L (136-145); Total Protein 7.2 g/dL (6.4-8.2); Troponin I < 50 ng/L (<or=60)
[2022-06-29 21:13] LABS: COVID-19 PCR Negative (Negative); Influenza A PCR Negative (Negative); Influenza B PCR Negative (Negative); RSV PCR Negative (Negative)
[2022-06-29 21:16] LABS: Source Nasopharynx
--- NOTE | 2022-06-29 21:54 | DI.VRAD_ITS ---
PROCEDURE INFORMATION: Exam: XR Chest Exam date and time: 06/29/2022 8:41 PM Age: 72 years old Clinical indication: Other: Feels unwell TECHNIQUE: Imaging protocol: Radiologic exam of the chest. Views: 1 view. COMPARISON: CT CHEST PE CTA 01/15/2020 10:30 PM FINDINGS: Lungs: Unremarkable. No consolidation. Pleural spaces: Unremarkable. No pleural effusion. No pneumothorax. Heart/Mediastinum: Unremarkable. No cardiomegaly. Bones/joints: Unremarkable. IMPRESSION: No acute findings. Dictated and Authenticated by: Jose R Rouse MD. Ordering:KENJI Hernandez MD
== END 2022-06-29 22:13 | disposition home or self-care (01) ==
PROVIDERS: Emergency Provider Physician Assistant; PCP Nurse Practitioner Adult Health
DX: R00.2 Palpitations (principal); F41.9 Anxiety disorder, unspecified; I10 Essential (primary) hypertension; R53.83 Other fatigue; R00.1 Bradycardia, unspecified; Z79.899 Other long term (current) drug therapy
CPT/HCPCS: 36415; 80053; 87637; 93005; 99284; 71045; 83735; 84484; 85025; 93010

== ENCOUNTER 2022-07-13 08:48 | Outpatient (CLI) | payer MEDICARE, SELFPAY | END 2022-07-13 08:49 | disposition home or self-care (01) | PROVIDERS: PCP Nurse Practitioner Adult Health; Visit Provider Nurse Practitioner Adult Health | DX: R00.2 Palpitations (principal) | CPT/HCPCS: 93246 ==

== ENCOUNTER 2022-08-12 07:23 | Outpatient (CLI) | payer MEDICARE, SELFPAY ==
--- NOTE | 2022-08-12 09:26 | W.CARDEVENT ---
Date of service: 08/12/22 Time of Service: 09:26 Cardiac Event Recorder Referring Provider:: Selene Pollack Indications:: Palpitations Cardiac Event Note: This is a 14-day cardiac event monitor Rhythm throughout was sinus with an average heart rate of 55. Minimum was 36, maximum 142 There were rare atrial premature beats. There were 2 brief self-limited atrial runs. There was no atrial fibrillation There were moderately frequent premature ventricular contractions. There were rare couplets, no ventricular tachycardia There was no high-grade AV block, no pauses greater than 3 seconds Patient's symptoms were reported. At times these correlated with premature ventricular contractions, but others had no association with dysrhythmia
== END 2022-08-12 07:24 | disposition home or self-care (01) ==
LOC: CARDOPNVT 07:23
PROVIDERS: PCP Nurse Practitioner Adult Health; Visit Provider Internal Medicine Cardiovascular Disease
DX: R00.2 Palpitations (principal); I49.1 Atrial premature depolarization; I49.3 Ventricular premature depolarization
CPT/HCPCS: 93248

== ENCOUNTER 2022-09-30 10:56 | Outpatient (CLI) | payer MEDICARE, SELFPAY ==
[2022-09-30 13:17] LABS: Anion Gap 6.5 mmol/L (3-11); BUN 19 mg/dL (7-18); CO2 29.5 mmol/L (21.0-32.0); CREATININE 0.8 mg/dL (0.55-1.02); Calcium 8.5 mg/dL (8.5-10.1); Chloride 107 mmol/L (98-107); Estimated GFR 77.27 (mL/min/1.73m2); Glucose 77 mg/dL (74-106); Potassium 4.5 mmol/L (3.5-5.1); Sodium 143 mmol/L (136-145); TSH (W/Ref FT4) 1.67 uIU/mL (0.36-3.74)
== END 2022-09-30 10:57 | disposition home or self-care (01) ==
LOC: LBO 10:57
PROVIDERS: PCP Nurse Practitioner Adult Health; Visit Provider Nurse Practitioner Adult Health
DX: E06.3 Autoimmune thyroiditis (principal); R00.2 Palpitations; I49.8 Other specified cardiac arrhythmias
CPT/HCPCS: 80048; 84443

== ENCOUNTER 2023-10-26 02:19 | Outpatient (CLI) | payer MEDICARE, SELFPAY ==
--- NOTE | 2023-10-26 07:00 | DI.RAD_ITS ---
Exam(s) XR LUMBAR SPINE COMPLETE EXAM: XR LUMBAR SPINE COMPLETE CLINICAL HISTORY: ? spinal stenosis (L4-L5),back pain,m54.9. TECHNIQUE: 2D digital imaging was performed. Five views. COMPARISON: No exams were available for comparison FINDINGS: BONES: No fracture or destructive lesion. Vertebral body heights are maintained. Mild to moderate facet degenerative changes at L4-5 and L5-S1. DISKS: Multilevel disc space narrowing, most severe at L3-4 and L5-S1. ALIGNMENT: Mild degenerative scoliosis. No spondylolisthesis. SOFT TISSUE: Calcification in the abdominal aorta which appears normal in diameter. IMPRESSION: Degenerative changes greatest at L3-4 and L5-S1. DATA REPOSITORY: RADIATION DOSE DELIVERED:
== END 2023-10-26 02:39 ==
LOC: DI 02:19
PROVIDERS: PCP Nurse Practitioner Adult Health; Visit Provider Nurse Practitioner Adult Health
DX: M51.36 Other intervertebral disc degeneration, lumbar region (principal)
CPT/HCPCS: 72110

== ENCOUNTER 2023-11-08 02:32 | Outpatient (CLI) | payer MEDICARE, SELFPAY ==
[2023-11-08 10:28] LABS: ALT 39 U/L (14-59); AST 24 U/L (15-37); Albumin 3.7 g/dL (3.4-5.0); Alkaline Phosphatase 56 U/L (46-116); Anion Gap 6.4 mmol/L (3-11); BUN 18 mg/dL (7-18); CO2 30.6 mmol/L (21.0-32.0); CREATININE 0.8 mg/dL (0.55-1.02); Calculated LDL 79 mg/dL (<100); Chloride 104 mmol/L (98-107); Cholesterol 172 mg/dL (<200); Estimated GFR 76.79 (mL/min/1.73m2); Folate > 20.0 ng/mL (8.6-20.0); Glucose 104 mg/dL (74-106); HDL Cholesterol 66 mg/dL (40-60); Magnesium 2.1 mg/dL (1.8-2.4); Potassium 4.5 mmol/L (3.5-5.1); Sodium 141 mmol/L (136-145); TSH (W/Ref FT4) 2.11 uIU/mL (0.36-3.74); Total Protein 7.1 g/dL (6.4-8.2); Triglyceride 136 mg/dL (<150); Vitamin B12 398 pg/mL (193-986)
== END 2023-11-08 02:33 | disposition home or self-care (01) ==
LOC: LBO 02:32
PROVIDERS: PCP Nurse Practitioner Adult Health; Referring Provider Nurse Practitioner Adult Health; Visit Provider Nurse Practitioner Adult Health
DX: E78.5 Hyperlipidemia, unspecified (principal); E06.3 Autoimmune thyroiditis; Z51.81 Encounter for therapeutic drug level monitoring; F41.1 Generalized anxiety disorder; M54.9 Dorsalgia, unspecified; R25.2 Cramp and spasm
CPT/HCPCS: 36415; 80053; 80061; 82607; 82746; 83735; 84443

== ENCOUNTER 2024-10-17 13:58 | Outpatient (CLI) | payer MEDICARE, SELFPAY ==
--- NOTE | 2024-10-17 05:30 | DI.US_ITS ---
Exam(s) US ABDOMEN EXAM: US ABDOMEN CLINICAL HISTORY: Acute, mild pain since 03/2024 R10.13 EPIGASTRIC PAIN R10.11RUQ PAIN TECHNIQUE: Ultrasound abdomen performed using standard protocol. COMPARISON: US US ABDOMEN from 04/25/[address] CHEST PE CTA from 01/15/2020 FINDINGS: ABDOMINAL AORTA AND IVC: Visualized portions normal caliber. PANCREAS: Normal where visualized. LIVER: There is diffuse increased echogenicity of the liver consistent with fatty infiltration. Hepatopetal flow in the Portal Vein. No evidence of a hepatic mass. The liver measures 15.7cm long. GALLBLADDER:No evidence of cholelithiasis. No evidence of wall thickening. No pericholecystic fluid identified. BILIARY SYSTEM: Common bile duct measures < 7 mm. No intrahepatic biliary ductal dilation. ALCALA'S SIGN: Negative. KIDNEYS: Kidneys are symmetric in size. No evidence of renal calculi. No evidence of hydronephrosis. No renal mass or cyst identified. SPLEEN: Not enlarged. ASCITES: None seen. IMPRESSION: Hepatic steatosis. DATA REPOSITORY:
== END 2024-10-17 14:18 ==
LOC: DI 13:58
PROVIDERS: PCP Nurse Practitioner Adult Health; Visit Provider Nurse Practitioner Adult Health
DX: R10.13 Epigastric pain (principal); R10.11 Right upper quadrant pain
CPT/HCPCS: 76700

== ENCOUNTER 2024-10-17 14:58 | Outpatient (CLI) | payer MEDICARE, SELFPAY ==
[2024-10-17 09:52] LABS: ALT 37 U/L (14-59); AST 23 U/L (15-37); Albumin 3.7 g/dL (3.4-5.0); Alkaline Phosphatase 52 U/L (46-116); Anion Gap 2.7 mmol/L (3-11); BUN 14 mg/dL (7-18); Bilirubin, Total 0.5 mg/dL (0.2-1.0); CO2 33.3 mmol/L (21.0-32.0); Calcium 9.0 mg/dL (8.5-10.1); Calculated LDL 83 mg/dL (<100); Chloride 104 mmol/L (98-107); Cholesterol 154 mg/dL (<200); Estimated GFR 76.31 (mL/min/1.73m2); Glucose 101 mg/dL (74-106); HDL Cholesterol 56 mg/dL (>or=50); Magnesium 2.1 mg/dL (1.8-2.4); Potassium 5.6 mmol/L (3.5-5.1); Sodium 140 mmol/L (136-145); TSH (W/Ref FT4) 2.83 uIU/mL (0.36-3.74); Total Protein 7.0 g/dL (6.4-8.2); Triglyceride 75 mg/dL (<150); Vitamin D 25 Total 33 ng/mL (30-100)
== END 2024-10-17 14:59 | disposition home or self-care (01) ==
LOC: LBO 14:58
PROVIDERS: PCP Nurse Practitioner Adult Health; Visit Provider Nurse Practitioner Adult Health
DX: K76.0 Fatty (change of) liver, not elsewhere classified (principal); E78.2 Mixed hyperlipidemia; E06.3 Autoimmune thyroiditis; E55.9 Vitamin D deficiency, unspecified
CPT/HCPCS: 36415; 80053; 80061; 82306; 83735; 84443

== ENCOUNTER 2024-10-30 01:31 | Outpatient (CLI) | payer MEDICARE, SELFPAY ==
[2024-10-30 11:45] LABS: Anion Gap 6.8 mmol/L (3-11); BUN 13 mg/dL (7-18); CO2 32.2 mmol/L (21.0-32.0); Calcium 9.3 mg/dL (8.5-10.1); Chloride 102 mmol/L (98-107); Estimated GFR 76.31 (mL/min/1.73m2); Glucose 121 mg/dL (74-106); Potassium 4.6 mmol/L (3.5-5.1); Sodium 141 mmol/L (136-145)
== END 2024-10-30 01:32 ==
LOC: LBO 10-31 01:31
PROVIDERS: PCP Nurse Practitioner Adult Health; Visit Provider Nurse Practitioner Adult Health
DX: E87.5 Hyperkalemia (principal)
CPT/HCPCS: 36415; 80048